=== PATIENT | female | born 1965 | race Caucasian/White ===

== ENCOUNTER → 2016-04-26 | Outpatient (CLI) | payer MEDICARE, MEDICAID ==
[~2016-04-26] MED LIST: LAMO250T PO; NAPR500T PO; SULF1TAB35 PO; flexeril PO
--- OUTSIDE RECORDS SUMMARY | 2016-04-26 11:05 | XMS REPORT | Continuity of Care Document ---
Author Author [facility] Organization [facility] Address Unknown Phone Unavailable Care Team Providers Care Assistant To The Ceo Name Role Phone NO, LOCAL PHYSICIAN PCP Unavailable Insurance Providers Payer Name Policy Number Subscriber Name Relationship Unknown Yusra Vergara 18 Self / Same As Patient Chief Complaint and Reason for Visit Chief Complaint Back Problems Reason for Visit Urinary tract infection Lumbar radiculopathy Problems Active Problems Medical Problem Onset Date Status Lumbar radiculopathy Unknown Acute Urinary tract infection Unknown Acute Medications Current Home Medications Medication Dose Units Route Directions Days/Qty Instructions Start Date Lamotrigine 250 Mg 250 Mg Oral 11/21/15 Naproxen 500 Mg 500 Mg Oral Twice A Day as needed for Pain 30 11/21/15 [Flexeril] 10 Mg Oral Twice A Day as needed for Pain 30 11/21/15 Sulfamethoxazole/Trimethoprim 1 Each 1 Each Oral Twice A Day 14 Social History Social History Problem Response Recorded Date/Time Recent Foreign Travel No 11/21/2015 5:19pm Recent Infectious Disease Exposure No 11/21/2015 5:19pm Recent Hopitalizations No 11/21/2015 5:19pm Hospital Discharge Instructions No hospital discharge instructions. Plan of Care Discharge Date 11/21/15 6:58pm Disposition 01 HOME, SELF-CARE Condition at Discharge Stable Instructions/Education Provided Urinary Tract Infection in Women (ED) Lumbar Radiculopathy (ED) Forms Provided Local Medical Staff Listing Prescriptions See Medication Section Referrals NO,LOCAL PHYSICIAN - Primary Care Physician Additional Instructions/Education 1. Medication as directed 2. Follow-up with your doctor later this week. If you do not have one, a list has been provided 3. All discharge instructions reviewed with patient and/or family. Voiced understanding. Functional Status No functional status results. Allergies, Adverse Reactions, Alerts No known allergies. Immunizations No immunization records. Vital Signs Acute Vital Signs Vital Response Date/Time Temperature (Fahrenheit) 98.6 degrees F (97.6 - 99.5) 11/21/2015 5:19pm Temperature (Calculated Celsius) 37.77296 degrees C (36.4 - 37.5) 11/21/2015 5:19pm Temperature Source Temporal 11/21/2015 5:19pm Pulse Rate (adult) 100 bpm (60 - 90) 11/21/2015 5:19pm Respiratory Rate 14 bpm (12 - 24) 11/21/2015 5:19pm O2 Sat by Pulse Oximetry 98 % (88 - 100) 11/21/2015 5:19pm Blood Pressure 111/80 mm Hg 11/21/2015 5:19pm Blood Pressure Mean 90 mm Hg 11/21/2015 5:19pm Pain Numeric Pain Scale 7 11/21/2015 6:28pm Height (Feet) 5 feet 11/21/2015 5:19pm Height (Inches) 5 inches 11/21/2015 5:19pm Height (Calculated Centimeters) 165.149765 cm 11/21/2015 5:19pm Weight (Pounds) 170 pounds 11/21/2015 5:19pm Weight (Calculated Kilograms) 77.405734 kilograms 11/21/2015 5:19pm Capillary Refill Capillary Refill Less Than 3 Seconds 11/21/2015 5:19pm Height 5 ft 5 in Weight 170 lb Body Mass Index 28.3 kg/m^2 Results Laboratory Results Test Name Result Units Flags Reference Collection Date/Time Result Date/ Time Comments Urine Color YELLOW 11/21/2015 5:32pm 11/21/2015 6:01pm Urine Clarity CLEAR 11/21/2015 5:32pm 11/21/2015 6:01pm Urine pH 6 5-9 11/21/2015 5:32pm 11/21/2015 6:01pm Urine Specific [place] 1.025 * 1.016-1.022 11/21/2015 5:32pm 2015 6:01pm Urine Protein 2+ * NEGATIVE 11/21/2015 5:32pm 11/21/2015 6:01pm Urine Glucose (UA) NEGATIVE NEGATIVE 11/21/2015 5:32pm 11/21/2015 6: 01pm Urine RBC (Auto) 2+ * NEGATIVE 11/21/2015 5:32pm 11/21/2015 6:01pm Urine Ketones NEGATIVE NEGATIVE 11/21/2015 5:32pm 11/21/2015 6:01pm Urine Nitrite NEGATIVE NEGATIVE 11/21/2015 5:32pm 11/21/2015 6:01pm Urine Bilirubin 1+ * NEGATIVE 11/21/2015 5:32pm 11/21/2015 6:01pm ICTOTEST NEGATIVE Urine Urobilinogen 4 MG/DL * NORMAL 11/21/2015 5:32pm 11/21/2015 6:01pm Urine Leukocyte Esterase 1+ * NEGATIVE 11/21/2015 5:32pm 11/21/2015 6: 01pm Urine RBC 0-2 /HPF 11/21/2015 5:32pm 11/21/2015 6:01pm Urine WBC 5-10 /HPF * 11/21/2015 5:32pm 11/21/2015 6:01pm Urine Bacteria LARGE /HPF * 11/21/2015 5:32pm 11/21/2015 6:01pm Urine Squamous Epithelial Cells 10-25 /HPF * 11/21/2015 5:32pm 2015 6:01pm Urine Crystals NONE /LPF 11/21/2015 5:32pm 11/21/2015 6:01pm Urine Casts NONE /LPF 11/21/2015 5:32pm 11/21/2015 6:01pm Urine Mucus NEGATIVE /LPF 11/21/2015 5:32pm 11/21/2015 6:01pm Urine Culture Indicated YES 11/21/2015 5:32pm 11/21/2015 6:01pm Procedures No known history of procedures. Encounters Encounter Location Arrival/Admit Date Discharge/Depart Date Attending Provider Departed Emergency Room [facility] 11/21/15 5:13pm 11/20 6:58pm DEBRA DIAZ APRN Recent Diagnosis
--- NOTE | 2016-04-26 21:10 | Diagnostic Imaging Report ---
INDICATION: Screening for osteoporosis. EXAMINATION: DEXA scan. COMPARISON: There are no prior studies available for comparison. FINDINGS: The bone mineral density of the hips and spine was measured. The T-score for the spine is -2.6. This does indicate osteoporosis. The T-score for the left hip is -1.4 and for the right hip is -1.7. These values are within the range of osteopenia. IMPRESSION: There is osteoporosis of the spine and osteopenia of the hips. Dictated by: Dictated on workstation # [id number]
== END ==
LOC: RAD 11:02
PROVIDERS: ATTEND Nurse Practitioner Family
DX: M81.0 Age-related osteoporosis without current pathological fracture (principal)
CPT/HCPCS: 77080

== ENCOUNTER → 2016-06-19 | Outpatient (CLI) | payer MEDICARE, MEDICAID ==
--- NOTE | 2016-06-19 14:34 | Diagnostic Imaging Report ---
INDICATION: Left-sided pain with no known discrete injury. FINDINGS: There is grade 1 anterolisthesis of L5 on S1. The posterior cortices are offset about 6 mm. This is not convincingly changed from the lumbar MRI performed in November 2015. Chronic L5 spondylolysis defects bilaterally were more conspicuous on the prior exam. The radiographic features of known hemangioma in the L1 vertebral body are unchanged. No vertebral body or endplate fracture. The remaining levels are aligned normally. There is spondylosis with osteophyte/disc material predominantly directed anteriorly, stable. IMPRESSION: Unchanged grade 1 L5 on S1 anterolisthesis with associated bilateral chronic L5 spondylolysis defects. Known hemangioma in the L1 vertebral body. The remaining levels are aligned normally. When correlated with the previous MRI, there is no obvious change. Dictated by: Dictated on workstation # [id number]
== END ==
LOC: RAD 13:53
PROVIDERS: ATTEND Nurse Practitioner Family
DX: M43.16 Spondylolisthesis, lumbar region (principal); M43.06 Spondylolysis, lumbar region; D18.09 Hemangioma of other sites
CPT/HCPCS: 72110

== ENCOUNTER → 2016-08-28 | Outpatient (CLI) | payer MEDICARE, MEDICAID ==
--- NOTE | 2016-08-28 15:26 | Diagnostic Imaging Report ---
EXAMINATION: Three views of the right elbow. INDICATION: Fall. FINDINGS: No fracture, dislocation, or radiopaque foreign body is seen. There is a prominent elbow effusion suggested with elevation of the anterior and posterior fat pads. The joint alignment is satisfactory with a normal appearance of the joint lining. IMPRESSION: Elbow effusion. Dictated by: Dictated on workstation # [id number]
== END ==
LOC: RAD 14:39
PROVIDERS: ATTEND Nurse Practitioner Family
DX: M25.421 Effusion, right elbow (principal)
CPT/HCPCS: 73080

== ENCOUNTER → 2020-05-06 | Outpatient (CLI) | payer MEDICARE, MEDICAID ==
[~2020-05-06] MED LIST changes: +NAPR-1071 PO; -NAPR500T PO; +RT-ALBUTEROL SULF 2.5 MG/3 ML PRE-MIX VIAL INH ONE
== END ==
LOC: RT 08:00
PROVIDERS: ATTEND Nurse Practitioner Family
DX: R06.02 Shortness of breath (principal); F17.200 Nicotine dependence, unspecified, uncomplicated
CPT/HCPCS: 94060; 94726; 94729

== ENCOUNTER → 2022-05-30 | Outpatient (CLI) | payer MEDICARE, MEDICAID ==
[~2022-05-30] MED LIST changes: -RT-ALBUTEROL SULF 2.5 MG/3 ML PRE-MIX VIAL INH ONE; -SULF1TAB35 PO; +SULF1TAB38 PO
== END | disposition home or self-care (01) ==
LOC: PREOP 06:45
PROVIDERS: ATTEND Surgery
DX: Z01.818 Encounter for other preprocedural examination (principal)